=== PATIENT | female | born 1945 | race Hispanic/Latino ===

== ENCOUNTER 2016-12-28 09:41 | Day surgery (SDC) | payer MEDICARE ==
[2016-12-25 07:55] VITALS: BMI 28.9
[2016-12-28] MEDS ORDERED: Propofol 10 mg/ml Inj (20 ML) ONE (11:57)
[2016-12-28] MEDS ORDERED: Midazolam 2 MG/2 ML VIAL ONE (11:57)
[2016-12-28] MEDS ORDERED: Lidocaine 1% Inj (20ml) ONE (11:57)
[2016-12-28] MEDS ORDERED: Sodium Chloride 0.9% 0 ML IV ONE (12:03)
[2016-12-28] MEDS ORDERED: Lactated Ringer's 1,000 ML IV SCH (12:45)
[2016-12-28 13:27] VITALS: BP 151/67; PULSE 71; RESP 20; TEMP 97.9; O2SAT 94
== END 2016-12-28 14:20 | disposition home or self-care (01) ==
LOC: SDS 09:41
PROVIDERS: ATTEND Internal Medicine Medical Oncology
DX: D64.9 Anemia, unspecified (principal); I25.10 Atherosclerotic heart disease of native coronary artery without angina pectoris; I10 Essential (primary) hypertension; E78.5 Hyperlipidemia, unspecified
CPT/HCPCS: 38221; J1885; J2001; J2250; J2704; J3010; J7120 ×2

== ENCOUNTER 2017-05-31 07:02 | Day surgery (SDC) | payer MEDICARE ==
[2017-05-24 08:27] VITALS: BMI 29.2
[2017-05-31] MEDS ORDERED: Propofol 10 mg/ml Inj (20 ML) ONE ×2 (08:08→08:21)
[2017-05-31] MEDS ORDERED: Sodium Chloride 0.9% 1,000 ML IV SCH (08:45)
[2017-05-31 09:31] VITALS: BP 143/61; PULSE 69; RESP 18; TEMP 98; O2SAT 98
[2017-05-31] MEDS ORDERED: Simethicone 40 mg/0.6 ml Liquid (30 ml) ONE (13:39)
== END 2017-05-31 10:06 | disposition home or self-care (01) ==
LOC: ENDO 07:02
PROVIDERS: ATTEND Internal Medicine Gastroenterology
DX: Z12.11 Encounter for screening for malignant neoplasm of colon (principal); K62.1 Rectal polyp; K57.30 Diverticulosis of large intestine without perforation or abscess without bleeding; K64.8 Other hemorrhoids; I10 Essential (primary) hypertension
CPT/HCPCS: 45378; J2704; J7040 ×2

== ENCOUNTER 2017-06-07 07:02 | Day surgery (SDC) | payer MEDICARE ==
[2017-05-24 08:27] VITALS: BMI 29.2
[2017-06-07] MEDS ORDERED: Propofol 10 mg/ml Inj (20 ML) ONE (07:54)
[2017-06-07] MEDS ORDERED: Sodium Chloride 0.9% 1,000 ML IV SCH (08:00)
[2017-06-07 08:37] VITALS: RESP 16
[2017-06-07 09:23] VITALS: BP 150/68; PULSE 70; TEMP 98; O2SAT 97
== END 2017-06-07 09:39 | disposition home or self-care (01) ==
LOC: ENDO 07:02
PROVIDERS: ATTEND Internal Medicine Gastroenterology
DX: K29.70 Gastritis, unspecified, without bleeding (principal); K29.80 Duodenitis without bleeding; K21.0 Gastro-esophageal reflux disease with esophagitis; D64.9 Anemia, unspecified; I10 Essential (primary) hypertension
CPT/HCPCS: 43239; 88305; 88342; J2001; J2704; J7040 ×2

== ENCOUNTER 2017-11-24 08:57 | Emergency (ER) | payer OTHER, MEDICARE ==
[2017-11-24 09:22] VITALS: TEMP 98.6; BMI 28.3
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
[2017-11-24 11:19] VITALS: BP 138/62; PULSE 68; RESP 16; O2SAT 98
== END 2017-11-24 11:18 | disposition home or self-care (01) ==
LOC: ED 08:57
DX: M54.2 Cervicalgia (principal); M54.5 Low back pain; V44.5XXA Car driver injured in collision with heavy transport vehicle or bus in traffic accident, initial encounter; Y92.410 Unspecified street and highway as the place of occurrence of the external cause